=== PATIENT | female | born 1965 | race Caucasian/White ===

== ENCOUNTER → 2017-06-22 | Emergency (ER) | payer SELFPAY ==
[~2017-06-22] MED LIST: Heparin 25,000 units/D5W 250ML PREMIX 25,000 UNITS/250 ML BAG IV ONE; Heparin 5000 UNITS/0.5 ML (HIGH RISK MED) IV ONE; Heparin 5000 UNITS/0.5 ML (HIGH RISK MED) ONE; LOPRESSOR 5 MG/5 ML INJECTION IV ONE; Ntg 0.2MG/Ml in D5W GLASS*** 250 ML IV ONE; Ntg 0.2MG/Ml in D5W GLASS*** 250 ML IV PRN; Sodium Chloride 0.9% 1000 ML 1,000 ML IV SCH
[2017-06-23 00:36] LABS: Granulocyte Absolute (ANC) 4.12 (1.4-6.9); Hematocrit 29.6 % (35-47); Hemoglobin 9.5 gm/dl (12.0-16.0); Mean Cell Volume 91.6 fl (78-100); Mean Corpuscular Hemoglobin 29.4 pg (26-32); Mean Corpuscular Hgb Concent. 32.1 g/dl (32-36); Mean Platelet Volume 9.8 fl (6-9.5); Platelet Count 493 K/mm3 (150-450); Red Blood Count 3.23 M/mm3 (4.1-5.4); Red Cell Distribution Width 16.5 % (11.5-14.0); White Blood Count 5.9 K/mm3 (4.0-10.5)
[2017-06-23 00:37] LABS: INR 1.02 (0.8-3.0)
--- NOTE | 2017-06-23 00:37 | ERPHSYRPT ---
- History of Present Illness Time Seen by Provider: 06/22/17 23:34 Historian: patient, EMS Physician History: PATIENT WITH A HISTORY OF HYPERTENSION, CORONARY DISEASE, UNDER CARDIACATHERIZATION WITH STENT INSERTION 1 WEEK AGO, COMPLAINS OF CHEST PAIN TONIGHT. EMS TRANSFERRING PATIENT FROM HOME TO [facility] , DEVERTED PATIENT TO [facility] DUE TO ARRHYTHMIA. PATIENT DENIES CHEST PAIN UPON ARRIVAL. Timing/Duration: today Activities at Onset: none Quality: burning, sharpness Location: substernal Chest Pain Radiation: jaw Severity of Pain-Max: moderate Severity of Pain-Current: none Modifying Factors: Improves With: breathing Associated Symptoms: shortness of breath Prior Chest Pain/Cardiac Workup: cardiac cath (STENT INSERTION 1 WEEK AGO) Nitro Today/Relief: 0.4 mg x 3 Aspirin Treatment Today: 81 mg x 1 Allergies/Adverse Reactions: adhesive [Adhesive] Allergy (Verified 02/21/14 14:27) latex Allergy (Verified 02/21/14 14:28) Home Medications: Atenolol 25 mg PO BID 02/06/13 [History] Aspirin 81 mg PO DAILY 02/21/14 [History] Citalopram Hydrobromide [Celexa] 20 mg PO DAILY 02/21/14 [History] Melatonin/Pyridoxine HCl (B6) [Melatonin 1 mg Tablet] 1 each PO HS 02/21/14 [ History] Meloxicam 7.5 mg [Mobic 7.5 MG] 7.5 mg PO BID 02/21/14 [History] Multivitamin [Multivitamins] 1 each PO DAILY 02/21/14 [History] Ranitidine HCl [Zantac 75] 75 mg PO DAILY 02/21/14 [History] Zolpidem Tartrate [Ambien] 10 mg PO HS 02/21/14 [History] Hx Tetanus, Diphtheria Vaccination/Date Given: Yes (UP TO DATE) Hx Influenza Vaccination/Date Given: Yes Hx Pneumococcal Vaccination/Date Given: No - Review of Systems Constitutional: No Fever, No Chills Eyes: No Symptoms Ears, Nose, & Throat: No Symptoms Respiratory: Dyspnea, No Cough Cardiac: Chest Pain, No Edema, No Syncope Abdominal/Gastrointestinal: No Abdominal Pain, No Nausea, No Vomiting, No Diarrhea Genitourinary Symptoms: No Symptoms, No Dysuria Musculoskeletal: No Symptoms, No Back Pain, No Neck Pain Skin: No Rash Neurological: No Dizziness, No Focal Weakness, No Sensory Changes Psychological: No Symptoms Endocrine: No Symptoms All Other Systems: Reviewed and Negative - Past Medical History Pertinent Past Medical History: Yes Neurological History: No Pertinent History ENT History: No Pertinent History Cardiac History: No Pertinent History Respiratory History: No Pertinent History Endocrine Medical History: No Pertinent History Musculoskeletal History: Arthritis, Osteoarthritis, Other GI Medical History: No Pertinent History History: No Pertinent History Psycho-Social History: Anxiety, Depression Other Medical History: UTERINE CANCER, ARTHRITIS - Past Surgical History Past Surgical History: Yes Neuro Surgical History: No Pertinent History Cardiac: No Pertinent History Respiratory: No Pertinent History Gastrointestinal: Cholecystectomy Musculoskeletal: Orthopedic Surgery Female Surgical History: Hysterectomy Other Surgical History: EYE SURGERY X7 - Social History Smoking Status: Current every day smoker How long have you smoked: 25 Exposure to second hand smoke: No Drug Use: none Patient Lives Alone: No - Physical Exam General Appearance: mild distress Eye Exam: PERRL/EOMI, eyes nml inspection Ears, Nose, Throat Exam: normal ENT inspection, moist mucous membranes Neck Exam: normal inspection, non-tender, supple, full range of motion Respiratory Exam: normal breath sounds, lungs clear, No respiratory distress Cardiovascular Exam: regular rate/rhythm, normal heart sounds Gastrointestinal/Abdomen Exam: soft, normal bowel sounds, No tenderness, No mass Back Exam: normal inspection, No CVA tenderness, No vertebral tenderness Extremity Exam: normal inspection, normal range of motion Neurologic Exam: alert, oriented x 3, cooperative, normal mood/affect, sensation nml, No motor deficits Skin Exam: normal color, warm, dry - Course EKG Interpreted by Me: RATE, Sinus Rhythm, Sinus Tach, Other (ANTERIOR SEPTAL ST SEGMENT ELEVATION) Ordered Tests: Active Orders 24 hr Category Date Time Status Flame Planer STAT Care 06/23/17 00:29 Ordered EKG-ER Only STAT Care 06/23/17 00:28 Ordered IV Insertion STAT Care 06/23/17 00:28 Ordered Oxygen-ED Only NON-REBREATHER 100% Care 06/23/17 00:28 Ordered CBC W DIFF Stat Lab 06/23/17 00:28 Ordered CMP Stat Lab 06/23/17 00:28 Ordered PROTIME WITH INR Stat Lab 06/23/17 00:28 Ordered PTT Stat Lab 06/23/17 00:30 Ordered TROPONIN Q3H Lab 06/23/17 00:30 Ordered TROPONIN Q3H Lab 06/23/17 03:30 Ordered TROPONIN Q3H Lab 06/23/17 06:30 Ordered TROPONIN Q3H Lab 06/23/17 09:30 Ordered TROPONIN Q3H Lab 06/23/17 12:30 Ordered Medication Summary Generic Name Dose Route Start Last Admin Trade Name Freq PRN Reason Stop Dose Admin Nitroglycerin/Dextrose 250 mls @ 1.5 mls/hr 06/23/17 00:28 Ntg 0.2mg/Ml In D5w Glass IV 07/23/17 00:27 .Q24H PRN CHEST PAIN Protocol 5 MCG/MIN Sodium Chloride 1,000 mls @ 200 mls/hr 06/23/17 00:30 Sodium Chloride 0.9% 1000 Ml IV 07/23/17 00:29 .Q5H MAIN Discontinued Medications Generic Name Dose Route Start Last Admin Trade Name Freq PRN Reason Stop Dose Admin Heparin Sodium (Beef Lung) 5,000 unit 06/23/17 00:28 Heparin 5000 Units/0.5 Ml (High Risk Med) IV 06/23/17 00:29 STAT ONE Metoprolol Tartrate 5 mg 06/23/17 00:28 Lopressor 5 Mg/5 Ml Injection IV 06/23/17 00:29 STAT ONE - Progress Progress: improved, re-examined Progress Note: 06/23/17 00:40 ADMINISTERED HEPARIN 5000 UNITS BOLUS IV, FOLLOWED BY INFUSION HEPARIN 1000 UNIT /HR, IV NITROGLYCERIN INFUSION TITRATE RAT 6- 30MCG/MIN Discussed with Dr.: Other (DISCUSSED WITH DR GAN AT [facility] AT 2338 ACCEPTS TRANSFER VIA [facility], CONSULTED DR NORTH AT 2342 FOR ACCEPTING PATIENT AT [employer]) - Departure Time of Disposition: 23:52 Departure Disposition: Transfer Clinical Impression: ANTERIOR SEPTAL STEMI Condition: Stable Critical Care Time: Yes Critical Care Time(excluding separately billable procedures): ___ minutes (18) Referrals: DOCTOR,NO FAMILY [Primary Care Provider] -
[2017-06-23 00:41] LABS: ALBUMIN 3.9 g/dL (3.5-5.0); ALKALINE PHOSPHATASE 125 U/L (38-126); ANION GAP 19.4 MEQ/L (5-15); BLOOD UREA NITROGEN 12 mg/dL (7-17); CHLORIDE 102 mmol/L (98-107); Calcium 9.6 mg/dL (8.4-10.2); Creatinine 1 0.82 mg/dL (0.52-1.04); Glucose 152 mg/dL (74-106); Potassium 3.6 mmol/L (3.5-5.1); SGOT/AST 25 U/L (14-36); SGPT/ALT 13 U/L (0-35); SODIUM 134 mmol/L (137-145); Total Protein 8.3 g/dL (6.3-8.2)
[2017-06-23 01:06] VITALS: BP 151/101; PULSE 94; O2SAT 98
[2017-06-23 01:08] LABS: Carbon Dioxide 15 mmol/L (22-30)
[2017-06-23 02:20] LABS: Eosinophil 4 % (0.00-3.0); Lymphocytes 22 % (24-44); Monocyte 5 % (0.0-12.0); Neutrophils 69 % (36.0-66.0); Platelet Estimate NORMAL (NORMAL); Total Cells Counted 100
== END | disposition short-term general hospital (02) ==
LOC: ED 23:34
DX: I21.09 ST elevation (STEMI) myocardial infarction involving other coronary artery of anterior wall (principal); Z79.899 Other long term (current) drug therapy; Z79.82 Long term (current) use of aspirin
CPT/HCPCS: 36415; 80053; 84484; 85025; 85610; 85730; 93005; 96360; 96365; 96374; 96375; 99285; J1644

== ENCOUNTER 2018-03-10 16:22 | Emergency (ER) | payer MEDICARE ==
--- NOTE | 2018-03-10 16:58 | ERPHSYRPT ---
- History of Present Illness Time Seen by Provider: 03/10/18 16:40 Source: patient, family Patient Subjective Stated Complaint: states has swelling to both arms, hands, legs, ankles, and feet since yesterday. also having pain to legs. also having a cough with white sputum. Triage Nursing Assessment: to room per w/c. skin w/d, color pale, resp nonlabored. moderate swelling to both arms, hands, legs, ankles and feet. Physician History: 52 y/o white female with arthritis and has generalized painful swollen joints. pt lives in [place] and is here visiting family for the holidays. sx of swelling began yesterday. pt has fibromyalgia Timing/Duration: yesterday Severity: mild Modifying Factors: Improves With: movement Associated Symptoms: denies symptoms, No nausea, No vomiting, No abdominal pain , No shortness of breath, No heartburn, No diaphoresis, No cough, No chills, No chest pain Allergies/Adverse Reactions: adhesive [Adhesive] Allergy (Verified 03/10/18 16:42) latex Allergy (Verified 03/10/18 16:42) Home Medications: Adalimumab [Humira Pen] 40 mg IM UD 03/10/18 [History] Amlodipine Besylate 5 mg [Norvasc 5 mg] 5 mg PO DAILY 03/10/18 [History] Carvedilol 25 mg PO BID 03/10/18 [History] Escitalopram Oxalate [Lexapro] 20 mg PO DAILY 03/10/18 [History] Ferrous Sulfate 325 mg [Feosol 325 mg] 325 mg PO DAILY 03/10/18 [History] Gabapentin 100 mg PO QID 03/10/18 [History] Hydroxyzine HCl 25 mg [Atarax 25 mg] 25 mg PO HS 03/10/18 [History] Isosorbide Mononitrate 30 mg [Imdur 30 MG] 30 mg PO DAILY 03/10/18 [History ] Losartan Potassium [Cozaar] 50 mg PO DAILY 03/10/18 [History] Methimazole [Tapazole] 5 mg PO TID 03/10/18 [History] Methocarbamol 500 mg [Robaxin 500 MG] 500 mg PO TID 03/10/18 [History] Omeprazole 40 mg PO DAILY 03/10/18 [History] Spironolactone 12.5 mg PO DAILY 03/10/18 [History] Ticagrelor [Brilinta] 90 mg PO BID 03/10/18 [History] Hx Tetanus, Diphtheria Vaccination/Date Given: Yes Hx Influenza Vaccination/Date Given: Yes Hx Pneumococcal Vaccination/Date Given: Yes Immunizations Up to Date: Yes - Review of Systems Constitutional: No Symptoms Eyes: No Symptoms Ears, Nose, & Throat: No Symptoms Respiratory: No Symptoms Cardiac: No Symptoms Abdominal/Gastrointestinal: No Symptoms Genitourinary Symptoms: No Symptoms Musculoskeletal: Joint Pain, Joint Swelling, Myalgias Skin: No Symptoms Neurological: No Symptoms Psychological: No Symptoms Endocrine: No Symptoms Hematologic/Lymphatic: No Symptoms Immunological/Allergic: No Symptoms All Other Systems: Reviewed and Negative - Past Medical History Pertinent Past Medical History: Yes Neurological History: No Pertinent History ENT History: No Pertinent History Cardiac History: Angina, Congestive Heart Failure, Coronary Artery Disease, Hypertension Respiratory History: COPD Endocrine Medical History: No Pertinent History Musculoskeletal History: Arthritis, Osteoarthritis, Other GI Medical History: Gallbladder Disease, Hernia History: No Pertinent History Psycho-Social History: Anxiety, Depression Female Reproductive Disorders: Menstrual Problems Other Medical History: UTERINE CANCER, ARTHRITIS - Past Surgical History Past Surgical History: Yes Neuro Surgical History: No Pertinent History Cardiac: No Pertinent History, Cardiac Catheterization, Cardiac Stent Respiratory: No Pertinent History Gastrointestinal: Cholecystectomy Musculoskeletal: Orthopedic Surgery Female Surgical History: Hysterectomy Other Surgical History: EYE SURGERY X7 - Social History Smoking Status: Current every day smoker How long have you smoked: 42 Exposure to second hand smoke: Yes Drug Use: none Patient Lives Alone: No - Female History Hx Now: No - Nursing Vital Signs Nursing Vital Signs: Initial Vital Signs Temperature 97.2 F 03/10/18 16:34 Pulse Rate 72 03/10/18 16:34 Respiratory Rate 18 03/10/18 16:34 Blood Pressure 109/61 03/10/18 16:34 O2 Sat by Pulse Oximetry 100 03/10/18 16:34 Pain Scale Pain Intensity 5 - Physical Exam General Appearance: no apparent distress, alert, anxiety Eye Exam: PERRL/EOMI Ears, Nose, Throat Exam: normal ENT inspection Neck Exam: normal inspection Respiratory Exam: normal breath sounds, lungs clear, airway intact, No chest tenderness, No respiratory distress, No accessory muscle use, No rhonchi, No wheezing, No stridor Cardiovascular Exam: regular rate/rhythm, normal heart sounds, normal peripheral pulses Gastrointestinal/Abdomen Exam: soft, normal bowel sounds, No tenderness, No guarding, No rebound Pelvic Exam: not done Rectal Exam: not done Back Exam: normal inspection, normal range of motion, No CVA tenderness, No vertebral tenderness Extremity Exam: joint swelling (generalized), swelling (bilateral feet and hands ), tenderness (generalized) Neurologic Exam: alert, oriented x 3, cooperative, salvage diver II-XII nml as tested Skin Exam: normal color, warm, dry Lymphatic Exam: No adenopathy SpO2 Interpretation: normal SpO2: 100 Oxygen Delivery: Room Air - Course Nursing assessment & vital signs reviewed: Yes EKG Interpreted by Me: RATE, Sinus Rhythm, NORMAL INTERVALS, NORMAL QRS, Non- specific ST Changes, Other (s1/s111 pattern) Ordered Tests: Active Orders 24 hr Category Date Time Status EKG-ER Only STAT Care 03/10/18 16:46 Active IV Insertion STAT Care 03/10/18 16:46 Active VENOUS BILATERAL EXTREMITY [US] Stat Exams 03/10/18 17:48 Ordered BMP Stat Lab 03/10/18 17:00 Completed CBC Stat Lab 03/10/18 17:00 Completed D-DIMER QUANTITATION Stat Lab 03/10/18 17:00 Completed TROPONIN Q3H Lab 03/10/18 17:00 Completed TROPONIN Q3H Lab 03/10/18 20:15 Ordered TROPONIN Q3H Lab 03/10/18 23:15 Ordered TROPONIN Q3H Lab 03/11/18 02:15 Ordered TROPONIN Q3H Lab 03/11/18 05:15 Ordered Medication Summary Discontinued Medications Generic Name Dose Route Start Last Admin Trade Name Angel PRN Reason Stop Dose Admin Morphine Sulfate 2 mg 03/10/18 17:03 03/10/18 17:08 Morphine Sulfate 2 Mg Inj IV 03/10/18 17:04 2 mg STAT ONE Administration Morphine Sulfate Confirm 03/10/18 17:06 Morphine Sulfate 2 Mg Inj Administered 03/10/18 17:07 Dose 2 mg .ROUTE .STK-MED ONE Ondansetron HCl 4 mg 03/10/18 17:03 03/10/18 17:08 Zofran 4 Mg/2 Ml Vial IV 03/10/18 17:04 4 mg STAT ONE Administration Ondansetron HCl Confirm 03/10/18 17:05 Zofran 4 Mg/2 Ml Vial Administered 03/10/18 17:06 Dose 4 mg .ROUTE .K-MED ONE Lab/Rad Data: Laboratory Result Diagrams 03/10/18 17:00 03/10/18 17:00 Laboratory Results 03/10/18 03/10/18 03/10/18 Range/Units 17:00 17:00 17:00 WBC (4.0-10.5) K/mm3 RBC (4.1-5.4) M/mm3 Hgb (12.0-16.0) gm/dl Hct (35-47) % MCV (78-100) fl MCH (26-32) pg MCHC (32-36) g/dl RDW (11.5-14.0) % Plt Count (150-450) K/mm3 MPV (6-9.5) fl D-Dimer 2556 H* (215-500) ng/mL Sodium 134 L (137-145) mmol/L Potassium 4.6 (3.5-5.1) mmol/L Chloride 110 H (98-107) mmol/L Carbon Dioxide 15 L* (22-30) mmol/L Anion Gap 14.1 (5-15) MEQ/L BUN 14 (7-17) mg/dL Creatinine 1.01 (0.52-1.04) mg/dL Estimated GFR > 60.0 ML/MIN Glucose 107 H (74-106) mg/dL Calcium 8.4 (8.4-10.2) mg/dL Troponin I < 0.012 (0.000-0.034) ng/mL 03/10/18 Range/Units 17:00 WBC 4.0 (4.0-10.5) K/mm3 RBC 2.84 L (4.1-5.4) M/mm3 Hgb 9.0 L (12.0-16.0) gm/dl Hct 27.8 L (35-47) % MCV 97.9 (78-100) fl MCH 31.6 (26-32) pg MCHC 32.4 (32-36) g/dl RDW 16.2 H (11.5-14.0) % Plt Count 462 H (150-450) K/mm3 MPV 8.9 (6-9.5) fl D-Dimer (215-500) ng/mL Sodium (137-145) mmol/L Potassium (3.5-5.1) mmol/L Chloride (98-107) mmol/L Carbon Dioxide (22-30) mmol/L Anion Gap (5-15) MEQ/L BUN (7-17) mg/dL Creatinine (0.52-1.04) mg/dL Estimated GFR ML/MIN Glucose (74-106) mg/dL Calcium (8.4-10.2) mg/dL Troponin I (0.000-0.034) ng/mL - Progress Progress: improved, pain not gone completely, re-examined Progress Note: 03/10/18 19:35 bilat lower ext venous doppler-no dvt; right ankle-foot tenosynovitis. Counseled pt/family regarding: lab results, diagnosis - Departure Time of Disposition: 19:36 Departure Disposition: Home Clinical Impression: Leg swelling, Tenosynovitis of ankle Condition: Stable Critical Care Time: No Referrals: OMAR CARTER [Primary Care Provider] - Additional Instructions: take medications as prescribed. follow up with primary doctor for further management Prescriptions: Hydrocodone/APAP 5/325 [[place] 5/325 mg] 1 each PO Q8H PRN PRN #10 tablet MDD 3 PRN Reason: Pain Prednisone 10 mg [Deltasone 10 mg] 10 mg PO TID #12 tablet
[2018-03-10] MEDS ORDERED: Zofran 4 MG/2 ML VIAL IV ONE (17:03)
[2018-03-10] MEDS ORDERED: MORPHINE SULFATE 2 MG INJ IV ONE ×2 (17:03→19:40)
[2018-03-10] MEDS ORDERED: Zofran 4 MG/2 ML VIAL ONE (17:05)
[2018-03-10] MEDS ORDERED: MORPHINE SULFATE 2 MG INJ ONE ×2 (17:06→19:45)
[2018-03-10 17:11] LABS: Hematocrit 27.8 % (35-47); Mean Cell Volume 97.9 fl (78-100); Mean Corpuscular Hgb Concent. 32.4 g/dl (32-36); Mean Platelet Volume 8.9 fl (6-9.5); Platelet Count 462 K/mm3 (150-450); Red Blood Count 2.84 M/mm3 (4.1-5.4); Red Cell Distribution Width 16.2 % (11.5-14.0)
[2018-03-10 17:15] LABS: Mean Corpuscular Hemoglobin 31.6 pg (26-32)
[2018-03-10 17:32] LABS: ANION GAP 14.1 MEQ/L (5-15); BLOOD UREA NITROGEN 14 mg/dL (7-17); CHLORIDE 110 mmol/L (98-107); Calcium 8.4 mg/dL (8.4-10.2); Creatinine 1 1.01 mg/dL (0.52-1.04); Glucose 107 mg/dL (74-106); Potassium 4.6 mmol/L (3.5-5.1); SODIUM 134 mmol/L (137-145)
[2018-03-10 17:47] LABS: Carbon Dioxide 15 mmol/L (22-30)
[2018-03-10 19:38] VITALS: BP 105/74
[2018-03-10] MEDS ORDERED: solu-MEDROL 125 MG IV ONE (19:40)
[2018-03-10] MEDS ORDERED: solu-MEDROL 125 MG ONE (19:45)
[2018-03-10 19:59] VITALS: PULSE 79; O2SAT 99
--- NOTE | 2018-03-10 21:15 | XRAY ---
Indication: Bilateral lower extremity pain and edema. Positive d-dimer. Two-dimensional sonogram and color Doppler imaging of the major venous vessels of the left and right leg was performed. Comparison: None No thrombus seen in the examined deep venous vessels of the left and right leg including greater saphenous veins. Veins demonstrate normal compressibility. Venous waveforms are normal with and without augmentation. Impression: Left and right legs negative for DVT. Comment: Preliminary report was given.
== END 2018-03-10 20:22 | disposition home or self-care (01) ==
LOC: ED 16:22
DX: M79.89 Other specified soft tissue disorders (principal); M65.871 Other synovitis and tenosynovitis, right ankle and foot; M79.7 Fibromyalgia; Z79.899 Other long term (current) drug therapy
CPT/HCPCS: 36000; 36415; 80048; 84484; 85027; 85379; 93005; 93970; 96374; 96375; 99284; J2270; J2405; J2930

== ENCOUNTER 2018-04-24 05:20 | Observation (INO) | payer MEDICARE, SELFPAY ==
--- NOTE | 2018-04-24 05:26 | ERPHSYRPT ---
<LAURA NÚÑEZ - Last Filed: 04/24/18 08:38> - History of Present Illness Source: patient, EMS Exam Limitations: no limitations Activities at Onset: none Severity of Dyspnea-Max: moderate Severity of Dyspnea-Current: mild Possible Cause: occasional episodes Modifying Factors: Improves With: coughing, oxygen, other (duoneb svn) Associated Symptoms: constant, anxiety, cough, insomnia (last few nights), wheezing Hx Tetanus, Diphtheria Vaccination/Date Given: Yes Hx Influenza Vaccination/Date Given: Yes Hx Pneumococcal Vaccination/Date Given: Yes <LYSSA FELIX - Last Filed: 04/28/18 19:23> - History of Present Illness Time Seen by Provider: 04/24/18 05:21 Physician History: 52 y/o white female presents with one week h/o cough and soa. pt has h/o copd, cadz, and chf. pt continues to smoke 1/2 ppd and does not wear oxygen at home. pt does use albuterol svn. pt arrives via ems. pt received a duoneb. ems attempted iv but not placed. pt from [place]. pt here to take care of her mother who is ill. (LYSSA FELIX) Allergies/Adverse Reactions: adhesive [Adhesive] Allergy (Verified 04/24/18 10:21) latex Allergy (Verified 04/24/18 10:21) Home Medications: Adalimumab [Humira(Cf) Pen] 40 mg IM UD 03/10/18 [History] Amlodipine Besylate 5 mg [Norvasc 5 mg] 5 mg PO DAILY 03/10/18 [History] Escitalopram Oxalate [Lexapro] 20 mg PO DAILY 03/10/18 [History] Ferrous Sulfate 325 mg [Feosol 325 mg] 325 mg PO DAILY 03/10/18 [History] Gabapentin 100 mg PO TID 03/10/18 [History] Hydroxyzine HCl 25 mg [Atarax 25 mg] 25 mg PO HS 03/10/18 [History] Losartan Potassium [Cozaar] 50 mg PO DAILY 03/10/18 [History] Methocarbamol 500 mg [Robaxin 500 MG] 500 mg PO TID 03/10/18 [History] Omeprazole 40 mg PO DAILY 03/10/18 [History] Ticagrelor [Brilinta] 90 mg PO BID 03/10/18 [History] Albuterol 2.5 mg/3 ml Neb [Proventil 2.5 mg/3 ml Neb] 2.5 mg IH Q4HPRN PRN 04/24/18 [History] Albuterol Sulfate [Proair Hfa] 8.5 gm IH Q4HPRN PRN 04/24/18 [History] Baclofen 10 mg [Lioresal 10 mg] 10 mg PO TIDPRN 04/24/18 [History] Carvedilol [Coreg] 25 mg PO BID 04/24/18 [History] Isosorbide Mononitrate [Isosorbide Mononitrate ER] 30 mg PO DAILY 04/24/18 [ History] - Review of Systems Constitutional: No Symptoms Eyes: No Symptoms Ears, Nose, & Throat: No Symptoms Respiratory: Cough, Dyspnea, Wheezing Cardiac: No Symptoms, No Chest Pain, No Palpitations, No Syncope Abdominal/Gastrointestinal: No Symptoms, No Abdominal Pain, No Nausea, No Vomiting, No Diarrhea Genitourinary Symptoms: No Symptoms, No Dysuria, No Frequency, No Hematuria Musculoskeletal: No Symptoms Skin: No Symptoms Neurological: No Symptoms Psychological: No Symptoms, Anxiety Endocrine: No Symptoms Hematologic/Lymphatic: No Symptoms Immunological/Allergic: No Symptoms All Other Systems: Reviewed and Negative <LYSSA FELIX - Last Filed: 04/28/18 19:23> - Past Medical History Pertinent Past Medical History: Yes Neurological History: No Pertinent History ENT History: No Pertinent History Cardiac History: Angina, Congestive Heart Failure, Coronary Artery Disease, Hypertension Respiratory History: COPD Endocrine Medical History: No Pertinent History Musculoskeletal History: Arthritis, Osteoarthritis, Other GI Medical History: Gallbladder Disease, Hernia History: No Pertinent History Psycho-Social History: Anxiety, Depression Female Reproductive Disorders: Menstrual Problems Other Medical History: UTERINE CANCER, ARTHRITIS - Past Surgical History Past Surgical History: Yes Neuro Surgical History: No Pertinent History Cardiac: No Pertinent History, Cardiac Catheterization, Cardiac Stent Respiratory: No Pertinent History Gastrointestinal: Cholecystectomy Musculoskeletal: Orthopedic Surgery Female Surgical History: Hysterectomy Other Surgical History: EYE SURGERY X7 - Social History Smoking Status: Current every day smoker How long have you smoked: 42 Exposure to second hand smoke: Yes Drug Use: none Patient Lives Alone: No <FELIXLYSSA KwanClint - Last Filed: 04/28/18 19:23> - Physical Exam General Appearance: mild distress Eye Exam: PERRL/EOMI, eyes nml inspection Ears, Nose, Throat Exam: hearing grossly normal Neck Exam: normal inspection, non-tender, supple, full range of motion Respiratory Exam: respiratory distress (mild), airway intact, wheezing, No chest tenderness, No accessory muscle use, No rhonchi, No stridor Cardiovascular/Chest Exam: normal heart sounds, regular rate/rhythm, normal peripheral pulses Abdominal/Gastrointestinal Exam: soft, normal bowel sounds, No tenderness, No guarding, No rebound Rectal Exam: not done Extremity Exam: non-tender, normal range of motion, normal inspection Neurologic Exam: alert, oriented x 3, cooperative, employment officer II-XII nml as tested Skin Exam: normal color, warm, dry Lymphatic Exam: No adenopathy SpO2 Interpretation: normal O2 Delivery: Non-rebreather <LYSSA FELIX - Last Filed: 04/28/18 19:23> - Nursing Vital Signs Nursing Vital Signs: Initial Vital Signs Temperature 98.2 F 04/24/18 05:30 Pulse Rate 70 04/24/18 05:30 Respiratory Rate 28 H 04/24/18 05:30 Blood Pressure 95/59 04/24/18 05:30 O2 Sat by Pulse Oximetry 100 04/24/18 05:30 Pain Scale Pain Intensity 0 - CT Exams Chest CT Interpretation: Discussed w/radiologist (CTA chest: No comparisons. Negative pulmonary emb. Interstitial edema, small bilateral effusions atelectasis. Rule out cardiac decompensation. Scattered subpleural cystic changes and small mediastinal calcified nodes. Proximal esophageal w either incomplete distention versus esophagitis versus mass. Prominent bilateral axillary nodes. Large is 1.3 x 1.8 cm on the right. 13 cm splenomegaly.) <LAURA NÚÑEZ - Last Filed: 04/24/18 08:38> - Course Nursing assessment & vital signs reviewed: Yes EKG Interpreted by Me: RATE (60), Sinus Rhythm, Non-specific ST Changes, Other ( s1/q111 pattern. comparison ekg dated 03/29/18 shows new low voltage, flat t waves) <LYSSA FELIX - Last Filed: 04/28/18 19:23> Ordered Tests: Medication Summary Discontinued Medications Generic Name Dose Route Start Last Admin Trade Name Freq PRN Reason Stop Dose Admin Acetaminophen 650 mg 04/24/18 21:30 04/25/18 18:31 Tylenol 325 Mg PO 05/24/18 21:29 650 mg Q4H PRN PRN Administration PAIN AND/OR FEVER Albuterol Sulfate 2.5 mg 04/24/18 07:39 04/24/18 07:48 Proventil 2.5 Mg/3 Ml Neb IH 04/24/18 07:40 2.5 mg STAT ONE Administration Albuterol Sulfate Confirm 04/24/18 07:45 Proventil 2.5 Mg/3 Ml Neb Administered 04/24/18 07:46 Dose 2.5 mg IH .STK-MED ONE Albuterol Sulfate 2.5 mg 04/24/18 13:08 04/24/18 23:16 Proventil 2.5 Mg/3 Ml Neb IH 05/24/18 13:07 2.5 mg Q4HPRN PRN Administration SHORTNESS OF BREATH Albuterol Sulfate 2 puff 04/24/18 13:17 Proventil Common Canister IH 05/24/18 13:16 Q4H PRN PRN Albuterol/Ipratropium 3 ml 04/24/18 09:51 04/25/18 03:08 Duoneb 0.5-3 Mg/3 Ml Neb IH 05/24/18 09:50 3 ml Q4HPRN PRN Administration SHORTNESS OF BREATH/WHEEZING Albuterol/Ipratropium 3 ml 04/25/18 07:00 04/26/18 10:30 Duoneb 0.5-3 Mg/3 Ml Neb IH 05/25/18 06:59 3 ml Q4HRT MAIN Administration Amlodipine Besylate 5 mg 04/24/18 14:00 04/26/18 08:03 Norvasc 5 Mg PO 05/24/18 13:59 5 mg DAILY MAIN Administration Baclofen 10 mg 04/24/18 13:15 04/24/18 15:32 Lioresal 10 Mg PO 05/24/18 13:14 10 mg TIDPRN PRN Administration Carvedilol 25 mg 04/24/18 14:00 04/26/18 08:03 Coreg 12.5 Mg PO 05/24/18 13:59 25 mg BID MAIN Administration Escitalopram Oxalate 20 mg 04/24/18 14:00 04/26/18 08:02 Lexapro 10 Mg PO 05/24/18 13:59 20 mg DAILY MAIN Administration Ferrous Sulfate 325 mg 04/24/18 14:00 04/26/18 08:03 Feosol 325 Mg PO 05/24/18 13:59 325 mg DAILY MAIN Administration Furosemide 40 mg 04/24/18 08:37 04/24/18 08:42 Lasix 40 Mg/4 Ml IV 04/24/18 08:38 40 mg STAT ONE Administration Furosemide Confirm 04/24/18 08:40 Lasix 40 Mg/4 Ml Administered 04/24/18 08:41 Dose 40 mg .ROUTE .STK-MED ONE Furosemide 20 mg 04/24/18 17:00 04/26/18 08:09 Lasix 20 Mg/2 Ml IV 05/24/18 16:59 20 mg BID DIURETIC MAIN Administration Gabapentin 100 mg 04/24/18 15:00 04/26/18 08:03 Neurontin 100 Mg PO 05/24/18 14:59 100 mg TID MAIN Administration Guaifenesin/Dextromethorphan 5 ml 04/24/18 23:22 04/26/18 08:05 Robitussin-Dm Syrup PO 05/24/18 23:21 5 ml Q4H PRN PRN Administration COUGH Hydroxyzine HCl 25 mg 04/24/18 22:00 04/25/18 21:28 Atarax 25 Mg PO 05/24/18 21:59 25 mg HS MAIN Administration Ceftriaxone Sodium/Dextrose 1 g in 50 mls @ 100 mls/hr 04/24/18 08:36 08:41 Rocephin 1 Gm-D5w 50 Ml Bag IV 04/24/18 09:05 100 ml/hr STAT STA 100 mls/hr Administration Ceftriaxone Sodium/Dextrose Confirm 04/24/18 08:40 Rocephin 1 Gm-D5w 50 Ml Bag Administered 04/24/18 08:41 Dose 1 g in 50 mls @ ud IV .STK-MED ONE Ceftriaxone Sodium/Dextrose 1 g in 50 mls @ 100 mls/hr 04/25/18 10:00 08:11 Rocephin 1 Gm-D5w 50 Ml Bag IV 05/25/18 09:59 100 mls/hr Q24H10 MAIN Administration Influenza Virus Vaccine 60 mcg 04/25/18 10:00 04/25/18 09:13 Fluzone Quad (36mo-64yo) [id number] Syringe IM 04/25/18 10:01 60 mcg .ONCE ONE Administration Isosorbide Mononitrate 30 mg 04/24/18 14:00 04/26/18 08:03 Imdur 30 Mg PO 05/24/18 13:59 30 mg DAILY MAIN Administration Losartan Potassium 50 mg 04/24/18 14:00 04/26/18 08:03 Cozaar 50 Mg PO 05/24/18 13:59 50 mg DAILY MAIN Administration Methocarbamol 500 mg 04/24/18 15:00 04/26/18 08:05 Robaxin 500 Mg PO 05/24/18 14:59 500 mg TID MAIN Administration Methylprednisolone Sodium Succinate 125 mg 04/24/18 05:28 04/24/18 06:09 Solu-Medrol 125 Mg IV 04/24/18 05:29 125 mg STAT ONE Administration Methylprednisolone Sodium Succinate Confirm 04/24/18 06:07 Solu-Medrol 125 Mg Administered 04/24/18 06:08 Dose 125 mg .ROUTE .STK-MED ONE Methylprednisolone Sodium Succinate 80 mg 04/24/18 12:00 04/25/18 05:59 Solu-Medrol 125 Mg IV 05/24/18 11:59 80 mg Q6HT MAIN Administration Methylprednisolone Sodium Succinate 80 mg 04/25/18 18:00 04/26/18 06:19 Solu-Medrol 125 Mg IV 05/25/18 17:59 80 mg Q12H MAIN Administration Miscellaneous Information 1 each 04/24/18 13:30 Medication Intervention MC 05/24/18 13:29 [facility] Miscellaneous Information 1 each 02/05/19 13:30 Medication Intervention PO 05/24/18 13:29 .RN TO CHECK ON MAIN Pantoprazole Sodium 40 mg 04/24/18 14:00 04/26/18 08:03 Protonix 40mg Tablet PO 05/24/18 13:59 40 mg DAILY MAIN Administration Humira 40mg Pen 1 each 04/25/18 13:00 04/25/18 13:03 SQ 05/25/18 12:59 1 each UD MAIN Administration Brilinta 90mg Tablet 1 each 04/25/18 13:00 04/26/18 08:04 PO 05/25/18 12:59 1 each BIDWM MAIN Administration Spironolactone 12.5 mg 04/24/18 14:00 04/26/18 08:03 Aldactone 25 Mg PO 05/24/18 13:59 12.5 mg DAILY MIAN Administration Lab/Rad Data: Laboratory Result Diagrams 04/24/18 05:45 04/24/18 05:45 Laboratory Results 04/24/18 04/24/18 04/24/18 Range/Units 08:14 08:04 05:45 WBC (4.0-10.5) K/mm3 RBC (4.1-5.4) M/mm3 Hgb (12.0-16.0) gm/dl Hct (35-47) % MCV (78-100) fl MCH (26-32) pg MCHC (32-36) g/dl RDW (11.5-14.0) % Plt Count (150-450) K/mm3 MPV (6-9.5) fl Gran % (36.0-66.0) % Eos # (Auto) (0-0.5) Absolute Lymphs (auto) (1.0-4.6) Absolute Monos (auto) (0.0-1.3) Lymphocytes % (24.0-44.0) % Monocytes % (0.0-12.0) % Eosinophils % (0.00-5.0) % Basophils % (0.0-0.4) % Absolute Granulocytes (1.4-6.9) Basophils # (0-0.4) PT (9.95-12.35) SECONDS INR (0.8-3.0) D-Dimer (215-500) ng/mL pO2/FiO2 Ratio 28.0 % VBG pH 7.34 (7.32-7.42) VBG pCO2 at Pat Temp 34 L (42-55) mm/Hg VBG pO2 at Pat Temp 58 H (25-40) mm/Hg VBG HCO3 18.3 L (22-28) meq/L VBG O2 Sat (Emma) 94.2 L (95-100) VBG Base Excess -6.7 L (-2.0-2.0) VBG Hemoglobin 10.4 VBG Carboxyhemoglobin 6.4 (0.0-6.9) % T HGB POC Potassium 4.4 (3.5-5.1) Sodium (137-145) mmol/L Potassium (3.5-5.1) mmol/L Chloride (98-107) mmol/L Carbon Dioxide (22-30) mmol/L Anion Gap (5-15) MEQ/L BUN (7-17) mg/dL Creatinine (0.52-1.04) mg/dL Estimated GFR ML/MIN Glucose (74-106) mg/dL Lactic Acid (0.4-2.0) Calcium (8.4-10.2) mg/dL Total Bilirubin (0.2-1.3) mg/dL AST (14-36) U/L ALT (0-35) U/L Alkaline Phosphatase (38-126) U/L Troponin I < 0.012 (0.000-0.034) ng/mL NT-Pro-B Natriuret Pep (0-900) pg/mL Serum Total Protein (6.3-8.2) g/dL Albumin (3.5-5.0) g/dL Influenza Type A Ag NEGATIVE (NEGATIVE) Influenza Type B Ag NEGATIVE (NEGATIVE) RSV (PCR) NEGATIVE (Negative) Slides for Path Review 04/24/18 04/24/18 04/24/18 Range/Units 05:45 05:45 05:45 WBC (4.0-10.5) K/mm3 RBC (4.1-5.4) M/mm3 Hgb (12.0-16.0) gm/dl Hct (35-47) % MCV (78-100) fl MCH (26-32) pg MCHC (32-36) g/dl RDW (11.5-14.0) % Plt Count (150-450) K/mm3 MPV (6-9.5) fl Gran % (36.0-66.0) % Eos # (Auto) (0-0.5) Absolute Lymphs (auto) (1.0-4.6) Absolute Monos (auto) (0.0-1.3) Lymphocytes % (24.0-44.0) % Monocytes % (0.0-12.0) % Eosinophils % (0.00-5.0) % Basophils % (0.0-0.4) % Absolute Granulocytes (1.4-6.9) Basophils # (0-0.4) PT 11.6 (9.95-12.35) SECONDS INR 1.00 (0.8-3.0) D-Dimer 1933 H* (215-500) ng/mL pO2/FiO2 Ratio % VBG pH (7.32-7.42) VBG pCO2 at Pat Temp (42-55) mm/Hg VBG pO2 at Pat Temp (25-40) mm/Hg VBG HCO3 (22-28) meq/L VBG O2 Sat (Emam) (95-100) VBG Base Excess (-2.0-2.0) VBG Hemoglobin VBG Carboxyhemoglobin (0.0-6.9) % T HGB POC Potassium (3.5-5.1) Sodium 127 L (137-145) mmol/L Potassium 4.2 (3.5-5.1) mmol/L Chloride 100 (98-107) mmol/L Carbon Dioxide 20 L (22-30) mmol/L Anion Gap 11.5 (5-15) MEQ/L BUN 13 (7-17) mg/dL Creatinine 0.73 (0.52-1.04) mg/dL Estimated GFR > 60.0 ML/MIN Glucose 95 (74-106) mg/dL Lactic Acid (0.4-2.0) Calcium 8.4 (8.4-10.2) mg/dL Total Bilirubin 0.30 (0.2-1.3) mg/dL AST 12 L (14-36) U/L ALT 8 (0-35) U/L Alkaline Phosphatase 104 (38-126) U/L Troponin I < 0.012 (0.000-0.034) ng/mL NT-Pro-B Natriuret Pep 495 (0-900) pg/mL Serum Total Protein 6.7 (6.3-8.2) g/dL Albumin 3.3 L (3.5-5.0) g/dL Influenza Type A Ag (NEGATIVE) Influenza Type B Ag (NEGATIVE) RSV (PCR) (Negative) Slides for Path Review 04/24/18 04/24/18 Range/Units 05:45 05:45 WBC 3.6 L (4.0-10.5) K/mm3 RBC 2.84 L (4.1-5.4) M/mm3 Hgb 9.3 L (12.0-16.0) gm/dl Hct 28.4 L (35-47) % MCV 100.0 (78-100) fl MCH 32.7 H (26-32) pg MCHC 32.7 (32-36) g/dl RDW 14.9 H (11.5-14.0) % Plt Count 353 (150-450) K/mm3 MPV 8.7 (6-9.5) fl Gran % 83.1 H (36.0-66.0) % Eos # (Auto) 0.04 (0-0.5) Absolute Lymphs (auto) 0.39 L (1.0-4.6) Absolute Monos (auto) 0.16 (0.0-1.3) Lymphocytes % 11.0 L (24.0-44.0) % Monocytes % 4.5 (0.0-12.0) % Eosinophils % 1.1 (0.00-5.0) % Basophils % 0.3 (0.0-0.4) % Absolute Granulocytes 2.96 (1.4-6.9) Basophils # 0.01 (0-0.4) PT (9.95-12.35) SECONDS INR (0.8-3.0) D-Dimer (215-500) ng/mL pO2/FiO2 Ratio % VBG pH (7.32-7.42) VBG pCO2 at Pat Temp (42-55) mm/Hg VBG pO2 at Pat Temp (25-40) mm/Hg VBG HCO3 (22-28) meq/L VBG O2 Sat (Emma) (95-100) VBG Base Excess (-2.0-2.0) VBG Hemoglobin VBG Carboxyhemoglobin (0.0-6.9) % T HGB POC Potassium (3.5-5.1) Sodium (137-145) mmol/L Potassium (3.5-5.1) mmol/L Chloride (98-107) mmol/L Carbon Dioxide (22-30) mmol/L Anion Gap (5-15) MEQ/L BUN (7-17) mg/dL Creatinine (0.52-1.04) mg/dL Estimated GFR ML/MIN Glucose (74-106) mg/dL Lactic Acid 1.0 (0.4-2.0) Calcium (8.4-10.2) mg/dL Total Bilirubin (0.2-1.3) mg/dL AST (14-36) U/L ALT (0-35) U/L Alkaline Phosphatase (38-126) U/L Troponin I (0.000-0.034) ng/mL NT-Pro-B Natriuret Pep (0-900) pg/mL Serum Total Protein (6.3-8.2) g/dL Albumin (3.5-5.0) g/dL Influenza Type A Ag (NEGATIVE) Influenza Type B Ag (NEGATIVE) RSV (PCR) (Negative) Slides for Path Review YES - Progress Progress: improved Air Movement: fair <LAURA NÚÑEZ - Last Filed: 04/24/18 08:38> - Progress Air Movement: good Blood Culture(s) Obtained: No Antibiotics given: No Counseled pt/family regarding: lab results, diagnosis, rad results <LYSSA FELIX - Last Filed: 04/28/18 19:23> - Progress Progress Note: 04/24/18 08:05 52-year-old white female with history of angina, congestive heart failure, coronary artery disease, COPD Initially seen by Dr. Felix with complaint of shortness of breath. Patient has not had any fevers. Patient initially given Solu-Medrol and DuoNeb treatment she has been given an albuterol treatment as well. Patient is afebrile blood pressure 95/59 sats 100% pulse 70 respirations initially 28 temperature 90.8 to. Chest x-ray is remarkable for bilateral infiltrates versus CHF. EKG sinus rhythm 60 bpm axis S1/every [address] or T wave changes are noted patient's labs CBC White blood cells 3.6 hemoglobin 9.3 hematocrit 28.4 platelets 353 D-dimer 1933 Chemistry sodium 127 potassium 4.2 chloride 100 bicarbonate 20 BUN 11.5 creatinine 0.73 glucose 95% Lactate 1.0 Troponin less than 0.017 BNP 495 RSV is negative influenza is negative Physical examination currently patient somewhat somnolent and arouses easily. Head is atraumatic normocephalic. Eyes PERRLA EOMI fundi are unremarkable. Ears TMs avina intact bilaterally. Nose is clear. Throat is clear. Neck is supple. Lungs bilateral wheezes. Heart regular rate and rhythm without murmur. Abdomen soft nontender nondistended positive bowel sounds. Extremities full range of motion pulse equal symmetrical 2/4. Neuro cranial nerves II through XII are intact DTRs equal 2 over 4 Karen Coma Scale is 15. Impression COPD with exacerbation. 2. CHF versus bilateral pneumonia. Plan await CTA chest. Obtain venous blood gases. Drawn her venous gases Will add blood cultures consider Rocephin. Patient's CT a chest: Negative pulmonary embolism, cardiomegaly, interstitial edema, small bilateral effusions and bibasilar atelectasis. Rule out cardiac decompensation. Scattered subpleural cystic changes and small mediastinal calcified nodes. Proximal esophageal wall thickening. Either incomplete distention versus esophagitis versus mass. Prominent bilateral axillary nodes. Large is 1.31.8 cm on the right. 13 cm splenomegaly. Patient with COPD with exacerbation, CHF. Case is discussed with Dr. Arauz will place patient on observation telemetry. Will give patient 1 g of Rocephin Lasix 40 mg IV. Will continue IV Solu-Medrol, albuterol treatments. 04/24/18 08:38 (LAURA NÚÑEZ) 04/24/18 06:42 pt comfortable and sleeping. cxr-bilat infiltrate vs fluid vs combination 04/24/18 06:59 reviewed pt lab, ekg and cxr results with dr. núñez. he accepts pt in transfer. he is aware of pending ct chest to follow up on. (LYSSA FELIX ) - Departure Time of Disposition: 08:40 Departure Disposition: Observation Critical Care Time: No <LAURA NÚÑEZ - Last Filed: 04/24/18 08:38> <LYSSA FELIX - Last Filed: 04/28/18 19:23> - Departure Clinical Impression: Shortness of breath, COPD with exacerbation CHF (congestive heart failure) Qualifiers: Heart failure type: combined systolic and diastolic Heart failure chronicity: unspecified Qualified Code(s): I50.40 - Unspecified combined systolic ( congestive) and diastolic (congestive) heart failure Condition: Fair
[2018-04-24] MEDS ORDERED: solu-MEDROL 125 MG IV ONE (05:28)
[2018-04-24 05:50] LABS: BASOPHIL % 0.3 % (0.0-0.4); Basophil (Absolute #) 0.01 (0-0.4); Eosinophil % 1.1 % (0.00-5.0); Eosinophil (Absolute #) 0.04 (0-0.5); Granulocyte Absolute (ANC) 2.96 (1.4-6.9); Granulocytes % 83.1 % (36.0-66.0); Hematocrit 28.4 % (35-47); Hemoglobin 9.3 gm/dl (12.0-16.0); Lymphocyte (Absolute #) 0.39 (1.0-4.6); Mean Corpuscular Hemoglobin 32.7 pg (26-32); Mean Corpuscular Hgb Concent. 32.7 g/dl (32-36); Mean Platelet Volume 8.7 fl (6-9.5); Monocyte (Absolute #) 0.16 (0.0-1.3); Monocytes % 4.5 % (0.0-12.0); Platelet Count 353 K/mm3 (150-450); Red Blood Count 2.84 M/mm3 (4.1-5.4); Red Cell Distribution Width 14.9 % (11.5-14.0); White Blood Count 3.6 K/mm3 (4.0-10.5)
[2018-04-24 06:00] LABS: PROTIME 11.6 SECONDS (9.95-12.35)
[2018-04-24] MEDS ORDERED: solu-MEDROL 125 MG ONE (06:07)
[2018-04-24 06:15] LABS: ALBUMIN 3.3 g/dL (3.5-5.0); ALKALINE PHOSPHATASE 104 U/L (38-126); ANION GAP 11.5 MEQ/L (5-15); BLOOD UREA NITROGEN 13 mg/dL (7-17); CHLORIDE 100 mmol/L (98-107); Calcium 8.4 mg/dL (8.4-10.2); Carbon Dioxide 20 mmol/L (22-30); Creatinine 1 0.73 mg/dL (0.52-1.04); Glucose 95 mg/dL (74-106); NT PRO BNP 495 pg/mL (0-900); Potassium 4.2 mmol/L (3.5-5.1); SGOT/AST 12 U/L (14-36); SGPT/ALT 8 U/L (0-35); SODIUM 127 mmol/L (137-145); Total Protein 6.7 g/dL (6.3-8.2)
[2018-04-24 06:23] LABS: INFLUENZA A NEGATIVE (NEGATIVE); INFLUENZA B NEGATIVE (NEGATIVE); RESPIRATORY SYNCTIAL VIRUS NEGATIVE (Negative)
[2018-04-24 06:24] LABS: Slide Review 1 YES
[2018-04-24] MEDS ORDERED: PROVENTIL 2.5 MG/3 ML NEB IH ONE ×2 (07:39→07:45)
[2018-04-24 08:24] LABS: VBG BASE EXCESS -6.7 (-2.0-2.0); VBG CARBOXYHEMOGLOBIN 6.4 % T HGB (0.0-6.9); VBG HCO3- 18.3 meq/L (22-28); VBG HEMOGLOBIN 10.4; VBG O2 SATURATION 94.2 (95-100); VBG POTASSIUM 4.4 (3.5-5.1); VBG pH 7.34 (7.32-7.42)
[2018-04-24] MEDS ORDERED: ROCEPHIN 1 Gm-D5w 50 ml Bag** 1 G/50 ML IVPB IV STA (08:36)
[2018-04-24] MEDS ORDERED: Lasix 40 MG/4 ML IV ONE (08:37)
[2018-04-24] MEDS ORDERED: ROCEPHIN 1 Gm-D5w 50 ml Bag** 1 G/50 ML IVPB IV ONE (08:40)
[2018-04-24] MEDS ORDERED: Lasix 40 MG/4 ML ONE (08:40)
--- NOTE | 2018-04-24 08:57 | XRAY ---
Indication: Short of breath. Elevated d-dimer. Multiple contiguous axial images obtained through the chest using 100 cc Isovue 370 contrast and PE protocol. Comparison: None There is satisfactory opacification of the pulmonary arteries including lobar and segmental branches. No filling defect or pulmonary embolus. Heart is enlarged without pericardial effusion. Aorta is normal in course and caliber without aneurysm/dissection. A few subcarinal and right perihilar calcified nodes. Proximal esophagus at the level of the thoracic inlet demonstrates circumferential wall thickening either incomplete distention, esophagitis, or mass. Lungs demonstrate mild pulmonary edema, small bilateral effusions, and mild bibasilar compressive atelectasis. Scattered subpleural cystic changes bilaterally. No suspicious pulmonary mass/nodule. Bony thorax intact. Multiple bilateral axillary prominent lymph nodes, largest on the right measuring 1.3 x 1.8 cm. Limited upper abdomen demonstrates 13 cm splenomegaly. Impression: 1. Negative pulmonary embolus. 2. Cardiomegaly, pulmonary edema, and bilateral effusions favoring cardiac decompensation. 3. Scattered subpleural cystic changes and evidence for old granulomatous disease. 4. Proximal esophageal circumferential wall thickening either incomplete distention versus esophagitis versus mass. Direct endoscopy or esophagram may yield further information. 5. Nonspecific prominent bilateral axillary lymph nodes. 6. Splenomegaly. CT DI 22.67
--- NOTE | 2018-04-24 08:59 | XRAY ---
Indication: Cough and short of breath. Comparison: March 29, 2018. Portable chest underinflated today with now bilateral interstitial alveolar opacities and bibasilar atelectasis. Stable small bibasilar effusions and borderline cardiomegaly. Findings may represent cardiac decompensation though superimposed pneumonia not completely excluded.
[2018-04-24] MEDS: solu-MEDROL 125 MG IV SCH ×3 (11:13→23:30)
--- NOTE | 2018-04-24 12:43 | PCM.HP ---
History of Present Illness - Chief Complaint Chief Complaint: Shortness of Breath for 2-3 days History of Present Illness: is a 52 year old female presents with one week h/o cough and soa. pt has h/o copd, cad, and chf. pt continues to smoke 1/2 ppd and does not wear oxygen at home. pt does use albuterol svn. pt arrives via [facility]. pt received a duoneb. ems attempted iv but not placed. pt from [place]. pt here to take care of her mother who is ill. - Review of Systems Constitutional: No Fever, No Chills Eyes: No Symptoms Ears, Nose, & Throat: No Symptoms Respiratory: Short Of Breath, No Cough Cardiac: No Chest Pain, No Edema, No Syncope Abdominal/Gastrointestinal: No Abdominal Pain, No Nausea, No Vomiting, No Diarrhea Genitourinary Symptoms: No Dysuria Musculoskeletal: No Back Pain, No Neck Pain Skin: No Rash Neurological: No Dizziness, No Focal Weakness, No Sensory Changes Psychological: No Symptoms Endocrine: No Symptoms Hematologic/Lymphatic: No Symptoms Immunological/Allergic: No Symptoms Medications & Allergies Home Medications: Home Medication List Adalimumab [Humira Pen] 40 mg IM UD 03/10/18 [History Confirmed 04/24/18] Amlodipine Besylate 5 mg [Norvasc 5 mg] 5 mg PO DAILY 03/10/18 [History Confirmed 04/24/18] Escitalopram Oxalate [Lexapro] 20 mg PO DAILY 03/10/18 [History Confirmed ] Ferrous Sulfate 325 mg [Feosol 325 mg] 325 mg PO DAILY 03/10/18 [History Confirmed 04/24/18] Gabapentin 100 mg PO TID 03/10/18 [History Confirmed 04/24/18] Hydroxyzine HCl 25 mg [Atarax 25 mg] 25 mg PO HS 03/10/18 [History Confirmed 04/24/18] Losartan Potassium [Cozaar] 50 mg PO DAILY 03/10/18 [History Confirmed 04/24/18] Methocarbamol 500 mg [Robaxin 500 MG] 500 mg PO TID 03/10/18 [History Confirmed 04/24/18] Omeprazole 40 mg PO DAILY 03/10/18 [History Confirmed 04/24/18] Spironolactone 12.5 mg PO DAILY 03/10/18 [History Confirmed 04/24/18] Ticagrelor [Brilinta] 90 mg PO BID 03/10/18 [History Confirmed 04/24/18] Albuterol 2.5 mg/3 ml Neb [Proventil 2.5 mg/3 ml Neb] 2.5 mg IH Q4HPRN PRN 04/24/18 [History Confirmed 04/24/18] Albuterol Sulfate [Proair Hfa] 8.5 gm IH Q4HPRN PRN 04/24/18 [History Confirmed 04/24/18] Baclofen 10 mg [Lioresal 10 mg] 10 mg PO TIDPRN 04/24/18 [History Confirmed 04/24/18] Carvedilol [Coreg] 25 mg PO BID 04/24/18 [History Confirmed 04/24/18] Isosorbide Mononitrate [Isosorbide Mononitrate ER] 30 mg PO DAILY 04/24/18 [ History Confirmed 04/24/18] Allergies/Adverse Reactions: Allergies Allergy/AdvReac Type Severity Reaction Status Date / Time adhesive [Adhesive] Allergy Verified 04/24/18 10:21 latex Allergy Verified 04/24/18 10:21 - Past Medical History Past Medical History: Yes Neurological History: No Pertinent History ENT History: No Pertinent History Cardiac History: Angina, Congestive Heart Failure, Coronary Artery Disease, Hypertension Respiratory History: COPD Endocrine Medical History: No Pertinent History Musculoskelatal History: Arthritis, Osteoarthritis, Other GI Medical History: Gallbladder Disease, Hernia History: No Pertinent History Pyscho-Social History: Anxiety, Depression Reproductive Disorders: Menstrual Problems Comment: UTERINE CANCER, ARTHRITIS - Female History Hx Last Menstrual Period: post Are you now?: No - Past Surgical History Past Surgical History: Yes Neuro Surgical History: No Pertinent History Cardiac History: No Pertinent History, Cardiac Catheterization, Cardiac Stent Respiratory Surgery: No Pertinent History GI Surgical History: Cholecystectomy Musculskeletal Surgical Hx: Orthopedic Surgery Female Surgical History: Hysterectomy Other Surgical History: EYE SURGERY X7 detached retina - Social History Smoking Status: Current every day smoker How long have you smoked: 40 y Exposure to second hand smoke: Yes Alcohol: None Drug Use: none - Physical Exam Vital Signs: Vital Signs - 24 hr Temp Pulse Resp BP Pulse Ox 02/05/19 11:18 20 04/24/18 10:21 97 04/24/18 09:44 97.9 F 63 20 139/66 98 04/24/18 09:36 97.9 F 63 20 139/66 98 04/24/18 08:38 64 20 116/75 94 L 04/24/18 07:48 69 22 99 04/24/18 07:41 77 26 H 109/73 100 04/24/18 07:37 68 16 100/68 100 04/24/18 06:50 64 99/68 100 04/24/18 06:31 100 04/24/18 06:20 64 104/71 100 04/24/18 05:30 98.2 F 70 28 H 95/59 100 Oxygen-Last 24 hours O2 Percentage 2 Liters = 28% O2 Percentage 2 Liters = 28% O2 Percentage 2 Liters = 28% O2 Percentage 2 Liters = 28% O2 Percentage 4 Liters = 36% O2 Percentage 4 Liters = 36% O2 Percentage 4 Liters = 36% O2 Percentage 4 Liters = 36% General Appearance: no apparent distress, alert Neurologic Exam: alert, oriented x 3, cooperative, normal mood/affect, nml cerebellar function, nml station & gait, sensation nml, No motor deficits Eye Exam: PERRL/EOMI, eyes nml inspection Ears, Nose, Throat Exam: normal ENT inspection, TMs normal, pharynx normal, moist mucous membranes Neck Exam: normal inspection, non-tender, supple, full range of motion Respiratory Exam: diminished breath sounds, crackles/rales, rhonchi, No respiratory distress Cardiovascular Exam: regular rate/rhythm, normal heart sounds, normal peripheral pulses Gastrointestinal/Abdomen Exam: soft, normal bowel sounds, No tenderness, No mass Back Exam: normal inspection, normal range of motion, No CVA tenderness, No vertebral tenderness Extremity Exam: normal inspection, normal range of motion, pelvis stable Skin Exam: normal color, warm, dry, No rash Lymphatic Exam: No adenopathy Results - Labs Lab/Micro Results: Lab Results-Last 24 Hours 04/24/18 04/24/18 04/24/18 Range/Units 05:45 05:45 05:45 WBC 3.6 L (4.0-10.5) K/mm3 RBC 2.84 L (4.1-5.4) M/mm3 Hgb 9.3 L (12.0-16.0) gm/dl Hct 28.4 L (35-47) % MCV 100.0 (78-100) fl MCH 32.7 H (26-32) pg MCHC 32.7 (32-36) g/dl RDW 14.9 H (11.5-14.0) % Plt Count 353 (150-450) K/mm3 MPV 8.7 (6-9.5) fl Gran % 83.1 H (36.0-66.0) % Eos # (Auto) 0.04 (0-0.5) Absolute Lymphs (auto) 0.39 L (1.0-4.6) Absolute Monos (auto) 0.16 (0.0-1.3) Lymphocytes % 11.0 L (24.0-44.0) % Monocytes % 4.5 (0.0-12.0) % Eosinophils % 1.1 (0.00-5.0) % Basophils % 0.3 (0.0-0.4) % Absolute Granulocytes 2.96 (1.4-6.9) Basophils # 0.01 (0-0.4) PT (9.95-12.35) SECONDS INR (0.8-3.0) D-Dimer (215-500) ng/mL pO2/FiO2 Ratio % VBG pH (7.32-7.42) VBG pCO2 at Pat Temp (42-55) mm/Hg VBG pO2 at Pat Temp (25-40) mm/Hg VBG HCO3 (22-28) meq/L VBG O2 Sat (Emma) (95-100) VBG Base Excess (-2.0-2.0) VBG Hemoglobin VBG Carboxyhemoglobin (0.0-6.9) % T HGB POC Potassium (3.5-5.1) Sodium 127 L (137-145) mmol/L Potassium 4.2 (3.5-5.1) mmol/L Chloride 100 (98-107) mmol/L Carbon Dioxide 20 L (22-30) mmol/L Anion Gap 11.5 (5-15) MEQ/L BUN 13 (7-17) mg/dL Creatinine 0.73 (0.52-1.04) mg/dL Estimated GFR > 60.0 ML/MIN Glucose 95 (74-106) mg/dL Lactic Acid 1.0 (0.4-2.0) Calcium 8.4 (8.4-10.2) mg/dL Total Bilirubin 0.30 (0.2-1.3) mg/dL AST 12 L (14-36) U/L ALT 8 (0-35) U/L Alkaline Phosphatase 104 (38-126) U/L Troponin I (0.000-0.034) ng/mL NT-Pro-B Natriuret Pep 495 (0-900) pg/mL Serum Total Protein 6.7 (6.3-8.2) g/dL Albumin 3.3 L (3.5-5.0) g/dL Influenza Type A Ag (NEGATIVE) Influenza Type B Ag (NEGATIVE) RSV (PCR) (Negative) Slides for Path Review YES 04/24/18 04/24/18 04/24/18 Range/Units 05:45 05:45 05:45 WBC (4.0-10.5) K/mm3 RBC (4.1-5.4) M/mm3 Hgb (12.0-16.0) gm/dl Hct (35-47) % MCV (78-100) fl MCH (26-32) pg MCHC (32-36) g/dl RDW (11.5-14.0) % Plt Count (150-450) K/mm3 MPV (6-9.5) fl Gran % (36.0-66.0) % Eos # (Auto) (0-0.5) Absolute Lymphs (auto) (1.0-4.6) Absolute Monos (auto) (0.0-1.3) Lymphocytes % (24.0-44.0) % Monocytes % (0.0-12.0) % Eosinophils % (0.00-5.0) % Basophils % (0.0-0.4) % Absolute Granulocytes (1.4-6.9) Basophils # (0-0.4) PT 11.6 (9.95-12.35) SECONDS INR 1.00 (0.8-3.0) D-Dimer 1933 H* (215-500) ng/mL pO2/FiO2 Ratio % VBG pH (7.32-7.42) VBG pCO2 at Pat Temp (42-55) mm/Hg VBG pO2 at Pat Temp (25-40) mm/Hg VBG HCO3 (22-28) meq/L VBG O2 Sat (Emma) (95-100) VBG Base Excess (-2.0-2.0) VBG Hemoglobin VBG Carboxyhemoglobin (0.0-6.9) % T HGB POC Potassium (3.5-5.1) Sodium (137-145) mmol/L Potassium (3.5-5.1) mmol/L Chloride (98-107) mmol/L Carbon Dioxide (22-30) mmol/L Anion Gap (5-15) MEQ/L BUN (7-17) mg/dL Creatinine (0.52-1.04) mg/dL Estimated GFR ML/MIN Glucose (74-106) mg/dL Lactic Acid (0.4-2.0) Calcium (8.4-10.2) mg/dL Total Bilirubin (0.2-1.3) mg/dL AST (14-36) U/L ALT (0-35) U/L Alkaline Phosphatase (38-126) U/L Troponin I < 0.012 (0.000-0.034) ng/mL NT-Pro-B Natriuret Pep (0-900) pg/mL Serum Total Protein (6.3-8.2) g/dL Albumin (3.5-5.0) g/dL Influenza Type A Ag NEGATIVE (NEGATIVE) Influenza Type B Ag NEGATIVE (NEGATIVE) RSV (PCR) NEGATIVE (Negative) Slides for Path Review 04/24/18 04/24/18 04/24/18 Range/Units 08:04 08:14 11:50 WBC (4.0-10.5) K/mm3 RBC (4.1-5.4) M/mm3 Hgb (12.0-16.0) gm/dl Hct (35-47) % MCV (78-100) fl MCH (26-32) pg MCHC (32-36) g/dl RDW (11.5-14.0) % Plt Count (150-450) K/mm3 MPV (6-9.5) fl Gran % (36.0-66.0) % Eos # (Auto) (0-0.5) Absolute Lymphs (auto) (1.0-4.6) Absolute Monos (auto) (0.0-1.3) Lymphocytes % (24.0-44.0) % Monocytes % (0.0-12.0) % Eosinophils % (0.00-5.0) % Basophils % (0.0-0.4) % Absolute Granulocytes (1.4-6.9) Basophils # (0-0.4) PT (9.95-12.35) SECONDS INR (0.8-3.0) D-Dimer (215-500) ng/mL pO2/FiO2 Ratio 28.0 % VBG pH 7.34 (7.32-7.42) VBG pCO2 at Pat Temp 34 L (42-55) mm/Hg VBG pO2 at Pat Temp 58 H (25-40) mm/Hg VBG HCO3 18.3 L (22-28) meq/L VBG O2 Sat (Emma) 94.2 L (95-100) VBG Base Excess -6.7 L (-2.0-2.0) VBG Hemoglobin 10.4 VBG Carboxyhemoglobin 6.4 (0.0-6.9) % T HGB POC Potassium 4.4 (3.5-5.1) Sodium (137-145) mmol/L Potassium (3.5-5.1) mmol/L Chloride (98-107) mmol/L Carbon Dioxide (22-30) mmol/L Anion Gap (5-15) MEQ/L BUN (7-17) mg/dL Creatinine (0.52-1.04) mg/dL Estimated GFR ML/MIN Glucose (74-106) mg/dL Lactic Acid (0.4-2.0) Calcium (8.4-10.2) mg/dL Total Bilirubin (0.2-1.3) mg/dL AST (14-36) U/L ALT (0-35) U/L Alkaline Phosphatase (38-126) U/L Troponin I < 0.012 < 0.012 (0.000-0.034) ng/mL NT-Pro-B Natriuret Pep (0-900) pg/mL Serum Total Protein (6.3-8.2) g/dL Albumin (3.5-5.0) g/dL Influenza Type A Ag (NEGATIVE) Influenza Type B Ag (NEGATIVE) RSV (PCR) (Negative) Slides for Path Review - Radiology Impressions Radiology Exams & Impressions: Radiology Procedures Category Date Time Status CHEST 1 VIEW (PORTABLE) Stat Exams 04/24/18 05:31 Completed CHEST WITH CONTRAST [CT] Stat Exams 04/24/18 06:43 Completed - Other Procedures and Tests Respiratory Therapy 04/24/18 09:51 Oxygen Nasal Cannula 2 lpm Assessment/Plan (1) COPD with exacerbation Current Visit: Yes Status: Acute Assessment & Plan: Last Vital Signs Temp 97.9 F 04/24/18 09:44 Pulse 63 04/24/18 09:44 Resp 20 04/24/18 11:18 BP 139/66 04/24/18 09:44 Pulse Ox 97 04/24/18 10:21 Allergies adhesive [Adhesive] Allergy (Verified 04/24/18 10:21) latex Allergy (Verified 04/24/18 10:21) Active Medications Albuterol/Ipratropium (Duoneb 0.5-3 Mg/3 Ml Neb) 3 ml IH Q4HPRN PRN PRN Reason: SHORTNESS OF BREATH/WHEEZING Stop: 05/24/18 09:50 Furosemide (Lasix 20 Mg/2 Ml) 20 mg IV BID DIURETIC MAIN Stop: 05/24/18 16:59 Ceftriaxone Sodium/Dextrose (Rocephin 1 Gm-D5w 50 Ml Bag) 1 g in 50 mls @ 100 mls/hr IV Q24H10 MAIN Stop: 05/25/18 09:59 Methylprednisolone Sodium Succinate (Solu-Medrol 125 Mg) 80 mg IV Q6HT MAIN Stop: 05/24/18 11:59 Last Admin: 04/24/18 11:13 Dose: 80 mg Intake & Output 04/24/18 04/25/18 11:59 11:59 Intake Total 420 Balance 420 Weight 85.275 kg Orders 04/24/18 10:21 Pulse Oximetry .spot check Lab Tests 04/24/18 04/24/18 04/24/18 05:45 05:45 05:45 WBC 3.6 L RBC 2.84 L Hgb 9.3 L Hct 28.4 L MCV 100.0 MCH 32.7 H MCHC 32.7 RDW 14.9 H Plt Count 353 MPV 8.7 Gran % 83.1 H Eos # (Auto) 0.04 Absolute Lymphs (auto) 0.39 L Absolute Monos (auto) 0.16 Lymphocytes % 11.0 L Monocytes % 4.5 Eosinophils % 1.1 Basophils % 0.3 Absolute Granulocytes 2.96 Basophils # 0.01 PT INR D-Dimer pO2/FiO2 Ratio VBG pH VBG pCO2 at Pat Temp VBG pO2 at Pat Temp VBG HCO3 VBG O2 Sat (Emma) VBG Base Excess VBG Hemoglobin VBG Carboxyhemoglobin POC Potassium Sodium 127 L Potassium 4.2 Chloride 100 Carbon Dioxide 20 L Anion Gap 11.5 BUN 13 Creatinine 0.73 Estimated GFR > 60.0 Glucose 95 Lactic Acid 1.0 Calcium 8.4 Total Bilirubin 0.30 AST 12 L ALT 8 Alkaline Phosphatase 104 Troponin I NT-Pro-B Natriuret Pep 495 Serum Total Protein 6.7 Albumin 3.3 L Influenza Type A Ag Influenza Type B Ag RSV (PCR) Slides for Path Review YES 04/24/18 04/24/18 04/24/18 05:45 05:45 05:45 WBC RBC Hgb Hct MCV MCH MCHC RDW Plt Count MPV Gran % Eos # (Auto) Absolute Lymphs (auto) Absolute Monos (auto) Lymphocytes % Monocytes % Eosinophils % Basophils % Absolute Granulocytes Basophils # PT 11.6 INR 1.00 D-Dimer 1933 H* pO2/FiO2 Ratio VBG pH VBG pCO2 at Pat Temp VBG pO2 at Pat Temp VBG HCO3 VBG O2 Sat (Emma) VBG Base Excess VBG Hemoglobin VBG Carboxyhemoglobin POC Potassium Sodium Potassium Chloride Carbon Dioxide Anion Gap BUN Creatinine Estimated GFR Glucose Lactic Acid Calcium Total Bilirubin AST ALT Alkaline Phosphatase Troponin I < 0.012 NT-Pro-B Natriuret Pep Serum Total Protein Albumin Influenza Type A Ag NEGATIVE Influenza Type B Ag NEGATIVE RSV (PCR) NEGATIVE Slides for Path Review 04/24/18 04/24/18 04/24/18 08:04 08:14 11:50 WBC RBC Hgb Hct MCV MCH MCHC RDW Plt Count MPV Gran % Eos # (Auto) Absolute Lymphs (auto) Absolute Monos (auto) Lymphocytes % Monocytes % Eosinophils % Basophils % Absolute Granulocytes Basophils # PT INR D-Dimer pO2/FiO2 Ratio 28.0 VBG pH 7.34 VBG pCO2 at Pat Temp 34 L VBG pO2 at Pat Temp 58 H VBG HCO3 18.3 L VBG O2 Sat (Emma) 94.2 L VBG Base Excess -6.7 L VBG Hemoglobin 10.4 VBG Carboxyhemoglobin 6.4 POC Potassium 4.4 Sodium Potassium Chloride Carbon Dioxide Anion Gap BUN Creatinine Estimated GFR Glucose Lactic Acid Calcium Total Bilirubin AST ALT Alkaline Phosphatase Troponin I < 0.012 < 0.012 NT-Pro-B Natriuret Pep Serum Total Protein Albumin Influenza Type A Ag Influenza Type B Ag RSV (PCR) Slides for Path Review Code(s): J44.1 - CHRONIC OBSTRUCTIVE PULMONARY DISEASE W (ACUTE) EXACERBATION (2) CHF (congestive heart failure) Current Visit: Yes Status: Acute Qualifiers: Heart failure type: combined systolic and diastolic Heart failure chronicity: unspecified Qualified Code(s): I50.40 - Unspecified combined systolic (congestive) and diastolic (congestive) heart failure Code(s): I50.9 - HEART FAILURE, UNSPECIFIED (3) Shortness of breath Current Visit: Yes Status: Acute Code(s): R06.02 - SHORTNESS OF BREATH
[2018-04-24] MEDS ORDERED: Ventolin Hfa MDI IH PRN (13:08)
[2018-04-24] MEDS ORDERED: PROVENTIL 2.5 MG/3 ML NEB IH PRN (13:08)
[2018-04-24] MEDS ORDERED: ADALIMUMAB 40 MG IM SCH (13:15)
[2018-04-24] MEDS ORDERED: LIORESAL 10 MG PO PRN (13:15)
[2018-04-24] MEDS ORDERED: PROVENTIL COMMON CANISTER IH PRN (13:17)
[2018-04-24] MEDS ORDERED: MEDICATION INTERVENTION MC SCH (13:30)
[2018-04-24] MEDS ORDERED: MEDICATION INTERVENTION PO SCH (13:30)
[2018-04-24] MEDS: FEOSOL 325 MG PO SCH (15:32)
[2018-04-24] MEDS: Lexapro 10 MG PO SCH (15:32)
[2018-04-24] MEDS: COREG 12.5 MG PO SCH ×2 (15:33→21:25)
[2018-04-24] MEDS: NORVASC 5 MG PO SCH (15:33)
[2018-04-24] MEDS: Aldactone 25 MG PO SCH (15:33)
[2018-04-24] MEDS: Cozaar 50 MG PO SCH (15:33)
[2018-04-24] MEDS: Protonix 40MG Tablet PO SCH (15:33)
[2018-04-24] MEDS: Neurontin 100 MG PO SCH ×2 (15:33→21:27)
[2018-04-24] MEDS: Imdur 30 MG PO SCH (15:33)
[2018-04-24] MEDS: Robaxin 500 MG PO SCH ×2 (15:33→21:25)
[2018-04-24] MEDS: Lasix 20 MG/2 ML IV SCH (17:37)
[2018-04-24] MEDS: DUONEB 0.5-3 MG/3 ml Neb IH PRN (19:36)
[2018-04-24] MEDS: ATARAX 25 MG PO SCH (21:26)
[2018-04-24] MEDS: TYLENOL 325 MG PO PRN (21:33)
[2018-04-24] MEDS ORDERED: NON-FORMULARY ITEM (Carvedilol [Coreg] 25 MG) PO SCH (22:00)
[2018-04-24] MEDS: Robitussin-Dm Syrup PO PRN (23:27)
[2018-04-25] MEDS: DUONEB 0.5-3 MG/3 ml Neb IH PRN (03:08)
[2018-04-25 05:40] LABS: BASOPHIL % 0.3 % (0.0-0.4); Basophil (Absolute #) 0.01 (0-0.4); Eosinophil (Absolute #) 0 (0-0.5); Granulocyte Absolute (ANC) 3.17 (1.4-6.9); Granulocytes % 87.8 % (36.0-66.0); Hematocrit 29.2 % (35-47); Hemoglobin 9.6 gm/dl (12.0-16.0); Lymphocyte (Absolute #) 0.33 (1.0-4.6); Lymphocytes % 9.1 % (24.0-44.0); Mean Corpuscular Hemoglobin 32.2 pg (26-32); Mean Corpuscular Hgb Concent. 32.9 g/dl (32-36); Mean Platelet Volume 9.1 fl (6-9.5); Monocytes % 2.8 % (0.0-12.0); Platelet Count 402 K/mm3 (150-450); Red Blood Count 2.98 M/mm3 (4.1-5.4); Red Cell Distribution Width 14.7 % (11.5-14.0); White Blood Count 3.6 K/mm3 (4.0-10.5)
[2018-04-25 05:58] LABS: ALBUMIN 3.3 g/dL (3.5-5.0); ALKALINE PHOSPHATASE 106 U/L (38-126); ANION GAP 12.6 MEQ/L (5-15); BLOOD UREA NITROGEN 21 mg/dL (7-17); CHLORIDE 98 mmol/L (98-107); Calcium 8.6 mg/dL (8.4-10.2); Carbon Dioxide 22 mmol/L (22-30); Creatinine 1 0.69 mg/dL (0.52-1.04); Glucose 131 mg/dL (74-106); Potassium 4.5 mmol/L (3.5-5.1); SGOT/AST 12 U/L (14-36); SGPT/ALT 11 U/L (0-35); SODIUM 127 mmol/L (137-145); Total Protein 6.8 g/dL (6.3-8.2)
[2018-04-25] MEDS: solu-MEDROL 125 MG IV SCH ×2 (05:59→17:04)
[2018-04-25 06:23] LABS: Slide Review 1 YES
[2018-04-25] MEDS: DUONEB 0.5-3 MG/3 ml Neb IH SCH ×5 (07:23→23:41)
--- NOTE | 2018-04-25 08:43 | PCM.NOTE ---
Date and Time: 04/25/18841 Subjective Assessment: douing better - Review of Systems Constitutional: No Fever, No Chills Eyes: No Symptoms Ears, Nose, & Throat: No Symptoms Respiratory: No Cough, No Short Of Breath Cardiac: No Chest Pain, No Edema, No Syncope Abdominal/Gastrointestinal: No Abdominal Pain, No Nausea, No Vomiting, No Diarrhea Genitourinary Symptoms: No Dysuria Musculoskeletal: No Back Pain, No Neck Pain Skin: No Rash Neurological: No Dizziness, No Focal Weakness, No Sensory Changes Psychological: No Symptoms Endocrine: No Symptoms Hematologic/Lymphatic: No Symptoms Immunological/Allergic: No Symptoms Objective Exam General Appearance: no apparent distress, alert Neurologic Exam: alert, oriented x 3, cooperative, normal mood/affect, nml cerebellar function, sensation nml, No motor deficits Skin Exam: normal color, warm, dry Eye Exam: PERRL, EOMI, eyes nml inspection Ears, Nose, Throat Exam: normal ENT inspection, pharynx normal, moist mucous membranes Neck Exam: normal inspection, non-tender, supple, full range of motion Respiratory Exam: normal breath sounds, lungs clear, No respiratory distress Cardiovascular Exam: regular rate/rhythm, normal heart sounds Gastrointestinal/Abdomen Exam: soft, No tenderness, No mass Extremity Exam: normal inspection, normal range of motion Back Exam: normal inspection, normal range of motion, No CVA tenderness, No vertebral tenderness Pelvic Exam: deferred Rectal Exam: deferred OBJECTIVE DATA Vital Signs: Vital Signs - 24 hr Temp Pulse Resp BP Pulse Ox 04/25/18 07:47 18 04/25/18 07:24 55 L 18 93 L 04/25/18 07:15 98.1 F 78 20 116/66 94 L 04/25/18 04:00 18 04/25/18 03:51 98.6 F 66 18 118/65 93 L 04/25/18 03:10 76 10 L 94 L 04/25/18 00:00 15 04/24/18 23:56 98.7 F 80 15 127/76 95 04/24/18 23:19 80 15 95 04/24/18 20:00 16 04/24/18 19:42 80 16 95 04/24/18 19:20 98.2 F 77 20 112/56 96 04/24/18 15:57 20 04/24/18 14:19 98.2 F 69 20 120/79 98 04/24/18 11:18 20 04/24/18 10:21 97 04/24/18 09:44 97.9 F 63 20 139/66 98 04/24/18 09:36 97.9 F 63 20 139/66 98 Oxygen-Last 24 hours O2 Percentage 2 Liters = 28% O2 Percentage 2 Liters = 28% O2 Percentage 2 Liters = 28% Pain Assessment - Last Documented Pain Intensity 5 Pain Scale Used 0-10 Pain Scale Intake and Output: Intake & Output 04/22/18 04/23/18 04/24/18 04/25/18 11:59 11:59 11:59 11:59 Intake Total 1690 Output Total 1600 Balance 90 Weight 85.275 kg 85.4 kg Lab Results: Lab Results-Last 24 Hours 04/24/18 04/24/18 04/24/18 Range/Units 08:14 11:50 15:00 WBC (4.0-10.5) K/mm3 RBC (4.1-5.4) M/mm3 Hgb (12.0-16.0) gm/dl Hct (35-47) % MCV (78-100) fl MCH (26-32) pg MCHC (32-36) g/dl RDW (11.5-14.0) % Plt Count (150-450) K/mm3 MPV (6-9.5) fl Gran % (36.0-66.0) % Eos # (Auto) (0-0.5) Absolute Lymphs (auto) (1.0-4.6) Absolute Monos (auto) (0.0-1.3) Lymphocytes % (24.0-44.0) % Monocytes % (0.0-12.0) % Eosinophils % (0.00-5.0) % Basophils % (0.0-0.4) % Absolute Granulocytes (1.4-6.9) Basophils # (0-0.4) Sodium (137-145) mmol/L Potassium (3.5-5.1) mmol/L Chloride (98-107) mmol/L Carbon Dioxide (22-30) mmol/L Anion Gap (5-15) MEQ/L BUN (7-17) mg/dL Creatinine (0.52-1.04) mg/dL Estimated GFR ML/MIN Glucose (74-106) mg/dL Calcium (8.4-10.2) mg/dL Total Bilirubin (0.2-1.3) mg/dL AST (14-36) U/L ALT (0-35) U/L Alkaline Phosphatase (38-126) U/L Troponin I < 0.012 < 0.012 < 0.012 (0.000-0.034) ng/mL Serum Total Protein (6.3-8.2) g/dL Albumin (3.5-5.0) g/dL Slides for Path Review 04/24/18 04/25/18 04/25/18 Range/Units 17:30 05:11 05:11 WBC 3.6 L (4.0-10.5) K/mm3 RBC 2.98 L (4.1-5.4) M/mm3 Hgb 9.6 L (12.0-16.0) gm/dl Hct 29.2 L (35-47) % MCV 98.0 (78-100) fl MCH 32.2 H (26-32) pg MCHC 32.9 (32-36) g/dl RDW 14.7 H (11.5-14.0) % Plt Count 402 (150-450) K/mm3 MPV 9.1 (6-9.5) fl Gran % 87.8 H (36.0-66.0) % Eos # (Auto) 0 (0-0.5) Absolute Lymphs (auto) 0.33 L (1.0-4.6) Absolute Monos (auto) 0.10 (0.0-1.3) Lymphocytes % 9.1 L (24.0-44.0) % Monocytes % 2.8 (0.0-12.0) % Eosinophils % 0.0 (0.00-5.0) % Basophils % 0.3 (0.0-0.4) % Absolute Granulocytes 3.17 (1.4-6.9) Basophils # 0.01 (0-0.4) Sodium 127 L (137-145) mmol/L Potassium 4.5 (3.5-5.1) mmol/L Chloride 98 (98-107) mmol/L Carbon Dioxide 22 (22-30) mmol/L Anion Gap 12.6 (5-15) MEQ/L BUN 21 H (7-17) mg/dL Creatinine 0.69 (0.52-1.04) mg/dL Estimated GFR > 60.0 ML/MIN Glucose 131 H (74-106) mg/dL Calcium 8.6 (8.4-10.2) mg/dL Total Bilirubin 0.30 (0.2-1.3) mg/dL AST 12 L (14-36) U/L ALT 11 (0-35) U/L Alkaline Phosphatase 106 (38-126) U/L Troponin I < 0.012 (0.000-0.034) ng/mL Serum Total Protein 6.8 (6.3-8.2) g/dL Albumin 3.3 L (3.5-5.0) g/dL Slides for Path Review YES Radiology Exams: Radiology Procedures Category Date Time Status CHEST 1 VIEW (PORTABLE) Stat Exams 04/24/18 05:31 Completed CHEST WITH CONTRAST [CT] Stat Exams 04/24/18 06:43 Completed Assessment/Plan (1) COPD with exacerbation Current Visit: Yes Status: Acute Assessment & Plan: improving Code(s): J44.1 - CHRONIC OBSTRUCTIVE PULMONARY DISEASE W (ACUTE) EXACERBATION (2) CHF (congestive heart failure) Current Visit: Yes Status: Acute Qualifiers: Heart failure type: combined systolic and diastolic Heart failure chronicity: unspecified Qualified Code(s): I50.40 - Unspecified combined systolic (congestive) and diastolic (congestive) heart failure Code(s): I50.9 - HEART FAILURE, UNSPECIFIED (3) Shortness of breath Current Visit: Yes Status: Acute Code(s): R06.02 - SHORTNESS OF BREATH
[2018-04-25] MEDS: Robitussin-Dm Syrup PO PRN ×3 (09:10→21:29)
[2018-04-25] MEDS: Aldactone 25 MG PO SCH (09:11)
[2018-04-25] MEDS: COREG 12.5 MG PO SCH ×2 (09:11→21:28)
[2018-04-25] MEDS: Imdur 30 MG PO SCH (09:11)
[2018-04-25] MEDS: Neurontin 100 MG PO SCH ×3 (09:11→21:28)
[2018-04-25] MEDS: FEOSOL 325 MG PO SCH (09:11)
[2018-04-25] MEDS: Cozaar 50 MG PO SCH (09:11)
[2018-04-25] MEDS: Lexapro 10 MG PO SCH (09:12)
[2018-04-25] MEDS: NORVASC 5 MG PO SCH (09:12)
[2018-04-25] MEDS: Protonix 40MG Tablet PO SCH (09:12)
[2018-04-25] MEDS: Robaxin 500 MG PO SCH ×3 (09:12→21:29)
[2018-04-25] MEDS: ROCEPHIN 1 Gm-D5w 50 ml Bag** 1 G/50 ML IVPB IV SCH (09:13)
[2018-04-25] MEDS: Lasix 20 MG/2 ML IV SCH ×2 (09:13→16:36)
[2018-04-25] MEDS ORDERED: FLUZONE QUAD (36mo-64yo) 2018-2019 SYRINGE IM ONE (10:00)
[2018-04-25] MEDS ORDERED: NON-FORMULARY ITEM (Escitalopram Oxalate [Lexapro] 20 MG) PO SCH (10:00)
[2018-04-25] MEDS ORDERED: PATIENT OWN MEDICATION SQ SCH (13:00)
[2018-04-25] MEDS: PATIENT OWN MEDICATION PO SCH ×2 (13:02→18:20)
[2018-04-25] MEDS: TYLENOL 325 MG PO PRN (18:31)
[2018-04-25] MEDS: ATARAX 25 MG PO SCH (21:28)
[2018-04-26] MEDS: solu-MEDROL 125 MG IV SCH (06:19)
[2018-04-26] MEDS: DUONEB 0.5-3 MG/3 ml Neb IH SCH ×2 (06:25→10:30)
[2018-04-26] MEDS: Lexapro 10 MG PO SCH (08:02)
[2018-04-26] MEDS: NORVASC 5 MG PO SCH (08:03)
[2018-04-26] MEDS: COREG 12.5 MG PO SCH (08:03)
[2018-04-26] MEDS: Protonix 40MG Tablet PO SCH (08:03)
[2018-04-26] MEDS: FEOSOL 325 MG PO SCH (08:03)
[2018-04-26] MEDS: Imdur 30 MG PO SCH (08:03)
[2018-04-26] MEDS: Cozaar 50 MG PO SCH (08:03)
[2018-04-26] MEDS: Aldactone 25 MG PO SCH (08:03)
[2018-04-26] MEDS: Neurontin 100 MG PO SCH (08:03)
[2018-04-26] MEDS: PATIENT OWN MEDICATION PO SCH (08:04)
[2018-04-26] MEDS: Robitussin-Dm Syrup PO PRN (08:05)
[2018-04-26] MEDS: Robaxin 500 MG PO SCH (08:05)
[2018-04-26] MEDS: Lasix 20 MG/2 ML IV SCH (08:09)
[2018-04-26 08:11] VITALS: BP 131/68
[2018-04-26] MEDS: ROCEPHIN 1 Gm-D5w 50 ml Bag** 1 G/50 ML IVPB IV SCH (08:11)
[2018-04-26 11:17] VITALS: PULSE 56; O2SAT 98
== END 2018-04-26 11:00 | disposition home or self-care (01) ==
LOC: ED 05:20 → MED SURG 09:08
PROVIDERS: ADMIT General Practice; ATTEND General Practice
DX: J44.1 Chronic obstructive pulmonary disease with (acute) exacerbation (principal); I50.9 Heart failure, unspecified; I10 Essential (primary) hypertension; F17.200 Nicotine dependence, unspecified, uncomplicated; Z79.899 Other long term (current) drug therapy
CPT/HCPCS: 36000; 36415; 71045; 71260; 80053; 82805; 83605; 83880; 84484; 85025; 85379; 85610; 87040; 87631; 93005; 93041; 93268; 94150; 94640; 94760; 94762; 96365; 96374; 96375; 99285; G0008; G0378; 90686; J0696; J1940; J2930; J7609; A9270-GY